=== PATIENT | female | born 1975 | race Caucasian/White ===

== ENCOUNTER → 2018-06-05 05:39 | Day surgery (SDC) | payer BC, OTHER ==
[~2018-06-05 05:39] MED LIST: Acetaminophen IV 1GM/100ML * 1,000 MG/100 ML VIAL IVPB ONE; Acetaminophen IV 1GM/100ML * 100 ML ONE; Buffered Lidocaine 1% SYRIN* 1 ML/SYRINGE INTRADERM ONE; Bupivacaine 0.5%* 50 ML VIAL ONE; Dexamethasone IV* 4 MG/ML 1 ML (4 MG) IV SLOW PU ONE; Dexamethasone IV* 4 MG/ML 1 ML (4 MG) ONE; DiMENhydriNATE IV* 50 MG/ML VIAL IV PUSH PRN; Famotidine IV* 10 MG/ML 2 ML (20 mg) IV ONE; Famotidine IV* 10 MG/ML 2 ML (20 mg) ONE; Glycopyrrolate IV* 0.2 MG/ML 1 ML VIAL ONE; HYDROcodone/ACETAMIN 5-325 MG* 1 TAB ONE; HYDROcodone/ACETAMIN 5-325 MG* 1 TAB PO PRN; Ibuprofen TAB* 600 MG PO PRN; Lactated Ringers 1000 ML Bag* 1,000 ML IV SCH; Lidocaine 2% PF * 5 ML VIAL ONE; Midazolam* 1 MG/ML 2 ML VIAL (2 MG) ONE; Morphine VIAL* 10 MG/ML 1 ML VIAL ONE; Morphine VIAL* 4 MG/ML VIAL (1 ml vial) ONE; Naloxone* 0.4 MG/ML 1 ML VIAL IV PRN; Neostigmine Methylsulfate* 1 MG/ML 10 ML VIAL (1 mg/ml) ONE; Ondansetron INJ* 2 MG/ML VIAL ONE; PROCHLORPERAZINE INJ 5 MG/ML 2 ML VIAL IV PRN; PROCHLORPERAZINE INJ 5 MG/ML 2 ML VIAL ONE; Propofol* 10 MG/ML 20 ML BTL ONE; Rocuronium* 10 MG/ML VIAL ONE; ceFAZolin 2 GM PREMIX in ORs 2 GM/50 ML BAG IVPB ONE; fentaNYL* 50 MCG/ML 2 ML VIAL (100 MCG VIAL) ONE
[2018-06-05] MEDS: fentaNYL* 50 MCG/ML 2 ML VIAL (100 MCG VIAL) IV PRN ×5 (09:58→10:43)
[2018-06-05] MEDS: Morphine VIAL* 4 MG/ML VIAL (1 ml vial) IV PRN ×2 (10:01→10:15)
--- NOTE | 2018-06-05 10:19 | OP ---
Operative Report - Blank - Operative Report Date of Operation: 06/05/18 Note: PATIENT: Karin López DATE OF : 1975 DATE OF SURGERY: 06/05/2018 SURGEON: Leodan Levine MD FAMILY SERVICES MANAGER: GUME Zacarias, whos assistance was necessary for positioning, retraction, help with instrumentation, and closure. ANESTHESIOLOGIST: Dr. 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 OPERATION: 1. Right excision of posterior tibial tendon 2. Right flexor digitorum longus (FDL) tendon transfer 3. Right medial displacement calcaneal osteotomy 4. Right gastrocnemius recession (Gricel procedure) ANESTHESIA: GETA IMPLANTS: Arthrex 6.7mm cannulated screw. Arthrex biotenodesis screw. TOURNIQUET TIME: Less than 2 hours with a well-padded thigh tourniquet at 250mmHg SPECIMENS: none ESTIMATED BLOOD LOSS: minimal COMPLICATIONS: none STATUS: Stable from the operating room to the recovery room and then home INDICATIONS FOR PROCEDURE: Krain has had persistent pain and limitations from stage II PTTD, refractory to conservative treatment. Both operative and non-operative treatment alternatives were reviewed. Further, the nature and risks of surgery were reviewed in careful detail. Our discussions regarding the risks of surgery included, but were not limited to, infection, wound problems, nerve injury, neuroma, RSD, persistent symptoms, blood clot, malunion, nonunion, hardware failure, need for further surgery, failure of the surgery, and even the remote chance of catastrophic complication, including loss of limb. DESCRIPTION OF PROCEDURE: The patient was seen in the preoperative holding unit and informed written consent was obtained. The appropriate extremity was marked. The patient was then brought to the operating room and carefully positioned on the operating room table. Anesthesia was induced. All bony prominences were padded with great care. A well-padded thigh tourniquet was placed. A chlorhexidine based pre- scrub was performed followed by a chloraprep prep and drape in standard sterile fashion. A surgical safety pause was then conducted in which we confirmed the appropriate patient, extremity, planned procedure, availability of equipment, indication and administration of prophylactic antibiotics, and DVT prophylaxis in the form of a compression boot on the non-surgical extremity. I began with an Esmarch exsanguination of the limb and inflation of the tourniquet. I made an oblique incision over the lateral aspect of the posterior calcaneus. Careful blunt dissection was used to get down to the level of the calcaneus. The lateral calcaneus was then exposed and Hohmann retractors were used proximally and distally to protect the soft tissue structures. A small oscillating saw blade was used to start the calcaneal osteotomy. Fluoroscopy was used to confirm the placement of the osteotomy and trajectory. The osteotomy was completed with the oscillating saw and then osteotomes. The osteotomy site was distracted and then I manually performed a medial displacement of the posterior aspect of the osteotomy. Guidewires for 6.7 mm cannulated screws were placed across the osteotomy. 10 mm of displacement was measured. Fluoroscopy was used to confirm the trajectory of the guidewires. An incision was made over the guidewire, the length of the wire was measured, and a partially-threaded 6.7 mm cannulated screw was placed. This provided excellent compression at the osteotomy site and had phenomenal purchase. Given how great the purchase was, I did not place a second screw. Fluoroscopy was then again checked. The now-prominent lateral edge of the osteotomy site was contoured down using a Rongeur and bone tamp. The wound was copiously irrigated and closed in a layered fashion. I then made an approximately 3-cm incision at the posteromedial calf. I carried the dissection through the soft tissue and divided the crural fascia longitudinally. I then exposed the fascia of the gastrocnemius muscle. Great care was taken to protect the sural nerve throughout this procedure. I cleared all adhesions from the posterior aspect of the gastrocnemius fascia and then transected this in its entirety from medially to laterally. I then identified the plantaris tendon, which was also tight medially. This was transected. These procedures had the effect of improving the ankle dorsiflexion to approximately 10 degrees. I then again confirmed that the sural nerve was in continuity. We irrigated copiously. We then used #3-0 Monocryl for the subdermal layer and grecia for the skin. An extensile curvilinear incision was made over the medial ankle and foot. The sheath of the posterior tibial tendon was identified and opened. There was significant degeneration of the posterior tibial tendon, and therefore resected. I exposed the medial navicular, and the accessory navicular was well fused. I decided not to resect it, as this would have left minimal bone stock medially for later FDL bone tunnel transfer. The FDL tendon was then exposed. At was then transected at the knot of shin and transferred from the plantar aspect of the navicular, through a bone tunnel to the dorsal aspect of the navicular. The bone tunnel was made using a 5.0 mm cannulated drill. The length of the FDL tendon was not enough to suture back on itself, so I placed a Bio-Tenodesis screw into the bone tunnel with the tendon, and this had excellent purchase. The FDL tendon was appropriately tensioned while placing the biotenodesis screw. I did reinforce this with #1 Ethibond at the edge of the bone tunnel plantarly. The wound was copiously irrigated and meticulously closed in layers utilizing 3-0 Monocryl and 3-0 Nylon. A sterile dressing was then applied followed by a well-padded splint. The patient was then awakened from anesthesia and transferred to the recovery room in stable condition. There were no complications. All needle and sponge counts were correct at the end of the case. ATTESTATION: I attest I was present and scrubbed and performed the critical portions of the procedure myself. POSTOPERATIVE PLAN: The plan is for 6 weeks of nonweightbearing in a short-leg cast. Followup will be in 2 weeks for likely suture/staple removal and transition into a short-leg cast.
[2018-06-05 13:00] VITALS: BP 128/82
== END | disposition home or self-care (01) ==
LOC: OR 05:39
PROVIDERS: ATTEND Orthopaedic Surgery
DX: M76.821 Posterior tibial tendinitis, right leg (principal); Q66.89 Other specified congenital deformities of feet; M67.01 Short Achilles tendon (acquired), right ankle; Q66.6 Other congenital valgus deformities of feet; E03.9 Hypothyroidism, unspecified; K21.9 Gastro-esophageal reflux disease without esophagitis; F41.8 Other specified anxiety disorders
CPT/HCPCS: 76000; 81025; C1713; J0690; J0780; J1100; J2250; J2270; J2405; J2704; J2710; J3010

== ENCOUNTER → 2019-06-04 09:31 | Day surgery (SDC) | payer BC ==
[~2019-06-04 09:31] MED LIST changes: -Acetaminophen IV 1GM/100ML * 1,000 MG/100 ML VIAL IVPB ONE; -Acetaminophen IV 1GM/100ML * 100 ML ONE; +Bupivacaine 0.5%* 50 ML MDV VIAL ONE; -Bupivacaine 0.5%* 50 ML VIAL ONE; -Dexamethasone IV* 4 MG/ML 1 ML (4 MG) IV SLOW PU ONE; -Dexamethasone IV* 4 MG/ML 1 ML (4 MG) ONE; +Dexamethasone TAB* 4 MG ONE; +Dexamethasone TAB* 4 MG PO ONE; -Glycopyrrolate IV* 0.2 MG/ML 1 ML VIAL ONE; -HYDROcodone/ACETAMIN 5-325 MG* 1 TAB ONE; -HYDROcodone/ACETAMIN 5-325 MG* 1 TAB PO PRN; +HYDROmorphone INJ1* 1 MG/ML SYRINGE IV PRN; -Ibuprofen TAB* 600 MG PO PRN; +KETAMINE HCL* 50 MG/ML 10 ML VIAL ONE; -Midazolam* 1 MG/ML 2 ML VIAL (2 MG) ONE; +Midazolam* 1 MG/ML 5 ML VIAL (5 MG) ONE; -Morphine VIAL* 10 MG/ML 1 ML VIAL ONE; -Morphine VIAL* 4 MG/ML VIAL (1 ml vial) ONE; -Neostigmine Methylsulfate* 1 MG/ML 10 ML VIAL (1 mg/ml) ONE; -Ondansetron INJ* 2 MG/ML VIAL ONE; +Ondansetron ODT TAB* 4 MG ONE; +Ondansetron ODT TAB* 4 MG PO ONE; -PROCHLORPERAZINE INJ 5 MG/ML 2 ML VIAL ONE; -Rocuronium* 10 MG/ML VIAL ONE; -ceFAZolin 2 GM PREMIX in ORs 2 GM/50 ML BAG IVPB ONE; +ceFAZolin 2 GM PREMIX in ORs 2 GM/50 ML BAG ONE; +oxyCODONE TAB* 5 MG TAB PO PRN
[2019-06-04] MEDS: fentaNYL* 50 MCG/ML 2 ML VIAL (100 MCG VIAL) IV PRN ×4 (13:07→13:44)
[2019-06-04 16:23] VITALS: BP 118/56
--- NOTE | 2019-06-04 16:49 | OP ---
Operative Report - Blank - Operative Report Date of Operation: 06/04/19 Note: PATIENT: Karin López DATE OF : 1975 DATE OF SURGERY: 06/04/2019 SURGEON: Leodan Levine MD FORM MAKER PLASTER: GUME Zacarias, whos assistance was necessary for positioning, retraction, help with instrumentation, and closure. ANESTHESIOLOGIST: Dr. Pina PREOPERATIVE DIAGNOSIS: Right foot painful retained hardware POSTOPERATIVE DIAGNOSIS: Right foot painful retained hardware OPERATION: Right foot removal of deep hardware ANESTHESIA: MAC IMPLANTS: none TOURNIQUET TIME: none SPECIMENS: none ESTIMATED BLOOD LOSS: minimal COMPLICATIONS: none STATUS: Stable from the operating room to the recovery room and then home. INDICATIONS FOR PROCEDURE: Joy had a prior foot reconstruction with painful retained hardware at her calcaneus. Both operative and non-operative treatment alternatives were reviewed. Further, the nature and risks of surgery were reviewed in careful detail. Our discussions regarding the risks of surgery included, but were not limited to, infection, wound problems, nerve injury, neuroma, RSD, persistent symptoms, blood clot, need for further surgery, failure of the surgery, and even the remote chance of catastrophic complication. DESCRIPTION OF PROCEDURE: The patient was seen in the preoperative holding unit and informed written consent was obtained. The appropriate extremity was marked. The patient was then brought to the operating room and carefully positioned on the operating room table. Anesthesia was induced. All bony prominences were padded with great care. A chlorhexidine based pre-scrub was performed followed by a chloraprep prep and drape in standard sterile fashion. A surgical safety pause was then conducted in which we confirmed the appropriate patient, extremity, planned procedure, availability of equipment, indication and administration of prophylactic antibiotics, and DVT prophylaxis in the form of a compression boot on the non-surgical extremity. I utilized fluoroscopy to localize the screw. Incision was made over the posterior heel. Careful blunt dissection was utilized down to the screw head. The guidewire was used to cannulate screw and a cannulated screwdriver was used to remove the screw in its entirety. Fluoroscopy was used to confirm removal of the calcaneus screw. The wound was then copiously irrigated and meticulously closed in layers utilizing 3-0 Monocryl for the dermal layer and 3-0 nylon for the skin. A sterile dressing was then applied. The patient was then awakened from anesthesia and transferred to the recovery room in stable condition. There were no complications. All needle and sponge counts were correct at the end of the case. ATTESTATION: I attest I was present and scrubbed and performed the critical portions of the procedure myself. POSTOPERATIVE PLAN: Follow-up in 2 weeks for likely suture removal.
== END | disposition home or self-care (01) ==
LOC: OR 09:31
PROVIDERS: ATTEND Orthopaedic Surgery
DX: T84.84XA Pain due to internal orthopedic prosthetic devices, implants and grafts, initial encounter (principal); Q66.6 Other congenital valgus deformities of feet; M15.9 Polyosteoarthritis, unspecified; K21.9 Gastro-esophageal reflux disease without esophagitis; F41.8 Other specified anxiety disorders
CPT/HCPCS: 76000; 81025; 88300; A9270-GY; J0690; J2250; J2704; J3010; J3490; J8540